=== PATIENT | male | born 1945 | race Caucasian/White ===

== ENCOUNTER 2024-05-09 10:21 | Day surgery (SDC) | payer MEDICARE, OTHER, SELFPAY ==
[2024-05-09] VITALS (16 sets, daily range): BP systolic 134–170; BP diastolic 44–137
[2024-05-09 11:36] LABS: Hematocrit 49.1 % (39.0-52.0); Hemoglobin 16.6 g/dL (13.0-18.0); Mean Corp Hgb Conc. 33.8 g/dL (33.0-37.0); Mean Corpuscular Volume 91.8 fL (80.0-94.0); Mean Platelet Volume 12.4 fL (7.4-10.4); Platelet Count 94 10^3/uL (130-400); Red Blood Cell Count 5.35 10^6/uL (4.70-6.10); White Blood Cell Count 4.2 10^3/uL (4.8-10.8)
[2024-05-09 12:28] LABS: ALT (SGPT) 33 U/L (0-50); AST (SGOT) 32 U/L (17-59); Albumin 3.4 g/dl (3.5-5.0); Alkaline Phosphatase 97 U/L (38-126); Blood Urea Nitrogen 26 mg/dl (9-20); Calcium 9.8 mg/dl (8.4-10.2); Carbon Dioxide 29 mmol/L (22-30); Chloride 105 mmol/L (98-107); Estimated Creatinine Clearance 40 ml/min; Glucose 85 mg/dl (70-99); Potassium 3.9 mmol/L (3.5-5.1); Sodium 139 mmol/L (135-145); Total Bilirubin 1.5 mg/dl (0.2-1.3); Total Protein 5.9 g/dl (6.3-8.2); eGFR 43.56
--- NOTE | 2024-05-09 14:11 | ITS.CL.PACE ---
Addendum entered and electronically signed by Edilson Bolden MD 05/17/24 09:38:
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
Original Note:
Eye Physician - Pacemaker Implant
Pacemaker Implant
Procedure Report:
Date of Procedure: May 09, 2024
Patient : 1945
Procedure: Pacemaker Implantation.
Indication: Symptomatic ventricular pause documented up to 4.6 seconds and associated with lightheadedness. He also has documented symptomatic bradycardia with heart rates into the 30s with lightheadedness. He has permanent atrial fibrillation.
Implants:
Pulse Generator: [employer]; Model# W1 SR 01; SN: [id number]
RV Lead: Medtronic; Model# 4074; SN: [id number]
Technique: A time out was performed. The procedure site was identified. The patient was anesthetized by the anesthesia service. Preoperative sedation was administered. The patient was prepped and draped in the usual fashion. Local anesthetic was
applied to the left prepectoral subcutaneous tissue. A 3 inch incision was made 2.5 inches below the left clavicle. A subcutaneous pocket was created with blunt and sharp dissection and hemostasis controlled with Bovie cautery. The left axillary
vein was accessed within the pocket without difficulty. Hemostasis was excellent. The lead was introduced with 7 Fr hemostatic peel away introducer sheaths. The ventricular lead was placed at the right ventricular apex. 10 volt pacing did not
capture the diaphragm. The leads were secured to the pectoralis muscle and fascia. The leads were appropriately attached to the device. The pocket was irrigated with antibiotic solution. The device and lead were placed in the pocket. The incision
was closed in three layers with absorbable suture. The estimated blood loss was minimal. There were no complications.��
Pulsed fluoroscopy 2.1 minutes and 15 mGy
Lead Analysis:
RV lead: R: 6.6 mV; Threshold: 0.625 V @ 0.5��ms; Impedance: 1083 ohms.
Final Programming: VVI 50 bpm
�
Conclusion: Uncomplicated Medtronic pacemaker implant.
CC: Dr. Titi Boggs at [facility]
Recommendation: Routine post pacemaker care.
[2024-05-09] MEDS: NORVASC 5 MG PO (16:14)
[2024-05-09] MEDS: BENICAR 5 MG PO (16:25)
[2024-05-09] MEDS: ANCEF 5 IV (17:49)
== END 2024-05-09 17:53 | disposition home or self-care (01) ==
LOC: CATH 10:21
PROVIDERS: ATTENDING PHYSICIAN Internal Medicine Cardiovascular Disease; FAMILY PHYSICIAN Internal Medicine; OTHER PHYSICIAN Internal Medicine Cardiovascular Disease
DX: I44.2 Atrioventricular block, complete (principal); R00.1 Bradycardia, unspecified; I48.21 Permanent atrial fibrillation; I45.10 Unspecified right bundle-branch block; I48.92 Unspecified atrial flutter; I51.7 Cardiomegaly
CPT/HCPCS: 33207; 71045; 80053; 85027; 93005; C1786; C1892; C1898; Q9967